=== PATIENT | female | born 1995 | race American Indian/Alaskan Native ===

== ENCOUNTER 2016-07-20 16:36 | Emergency (ER) | payer MEDICAID, OTHER ==
--- NOTE | 2016-07-20 17:36 | Emergency Department Report ---
Chief Complaint: Abdominal Pain Stated Complaint: ABD PAIN Time Seen by Provider: 07/20/16 17:31 - HPI History of Present Illness: Patient here reports abdominal pain to right lower quadrant for 2 weeks. She reports nausea and that she vomited 1-2 times. Denies any diarrhea. Reports the pain is 8 out of 10 to her lower abdomen and it's cramping. Denies any fever or chills. Denies any urinary burning frequency or urgency. Last menstrual period is 06/22/2016 and she is concerned about being . She denies any vaginal bleeding or discharge. - ROS Review of Systems: all Systems are negative unless stated in HPI above - Exam Vital Signs: Vital Signs 07/20/16 16:48 Temperature 98.7 F Pulse Rate 62 Respiratory 18 Rate Blood Pressure 128/77 O2 Sat by Pulse 100 Oximetry Physical Exam: General: This is a 20-year-old female well-nourished well-developed in no acute distress. Abdomen: Mild tenderness to palpate to mid pelvic area. No guarding or rebound tenderness. Normal bowel sounds. No CVA tenderness. CV: S1, S2. Regular rate and rhythm. MSE screening note: Focused history and physical exam performed. Due to findings the following was ordered: See MDM ED Medical Decision Making - Medical Decision Making Medical decision making: Patient seen by provider in triage area. Appropriate protocol activated and patient to main ED to be seen by physician. ED Disposition for MSE Condition: Stable Instructions: Abdominal Pain (ED)
[2016-07-20 18:07] LABS: Basophils % (Auto) 0.4 % (0.0-1.8); Eosinophils % (Auto) 0.5 % (0.0-4.3); Hematocrit 40.5 % (30.3-42.9); Hemoglobin 13.6 gm/dl (10.1-14.3); Mean Corpuscular HGB Conc 34 % (30-34); Mean Corpuscular Hemoglobin 31 pg (28-32); Mean Corpuscular Volume 91 fl (79-97); Platelet Count 232 K/mm3 (140-440); Red Blood Count 4.43 M/mm3 (3.65-5.03); Red Cell Distribution Width 12.8 % (13.2-15.2); White Blood Count 8.2 K/mm3 (4.5-11.0)
[2016-07-20 18:28] LABS: Alanine Aminotransferase 14 units/L (7-56); Albumin 4.2 g/dL (3.9-5); Albumin/Globulin Ratio 1.3 %; Alkaline Phosphatase 60 units/L (35-129); Amylase 68 units/L (27-131); Anion Gap 18 mmol/L; BUN/Creatinine Ratio 8.33; Bilirubin,Total 0.5 mg/dL (0.1-1.2); Blood Urea Nitrogen 5 mg/dL (7-17); Calcium 8.8 mg/dL (8.4-10.2); Carbon Dioxide 24 mmol/L (22-30); Chloride 99.5 mmol/L (98-107); Glucose 96 mg/dL (65-100); Lipase 14 units/L (13-60); Potassium 3.9 mmol/L (3.6-5.0); Sodium 138 mmol/L (137-145); Total Protein 7.4 g/dL (6.3-8.2)
[2016-07-20 18:37] LABS: Bilirubin,Direct < 0.2 mg/dL (0-0.2); Bilirubin,Indirect 0.3 mg/dL
[2016-07-20 19:24] LABS: Bilirubin,Urine NEG (Negative); Blood,Urine SM (Negative); Ketones,Urine NEG (Negative); Leukocyte Esterase,Urine MOD (Negative); Nitrite,Urine NEG (Negative); Protein,Urine <15 mg/dL mg/dL (Negative); RBC,Urine < 1.0 /HPF (0.0-6.0); Urobilinogen,Urine < 2.0 mg/dL (<2.0)
--- NOTE | 2016-07-20 22:26 | Ultrasound Report ---
FINAL REPORT PROCEDURE: US OB TRANSVAGINAL TECHNIQUE: Real-time transabdominal and transvaginal sonography of the uterus, placenta, amniotic fluid, adnexa, and fetus was performed with image documentation. Measurements were obtained to determine age/size. M-mode Doppler was used to document heartbeat. CPT 01596 and 73156 HISTORY: abdominal pain and COMPARISON: No prior studies are available for comparison. FINDINGS: Uterus measures 9.1 cm in length. Endometrial thickness is 1 cm. No gestational sac is seen in the endometrial canal. There is moderate free pelvic fluid. Right ovary measures 3.2 x 1.5 x 2.7 cm. Left ovary measures 3.3 x 2.3 x 2.9 cm. Normal Doppler flow seen in the ovaries. Likely collapsed cyst is seen in the left ovary measuring 2 cm. IMPRESSION: No IUP is seen. Likely recently collapsed cyst is seen in the left ovary with moderate free pelvic fluid. Correlation with serial quantitative beta HCG levels is recommended. Repeat ultrasound may be useful if these continue to rise.
--- NOTE | 2016-07-20 22:27 | Ultrasound Report ---
FINAL REPORT PROCEDURE: US OB < = 14 WEEKS FETUS TECHNIQUE: Real-time transabdominal and transvaginal sonography of the uterus, placenta, amniotic fluid, adnexa, and fetus was performed with image documentation. Measurements were obtained to determine age/size. M-mode Doppler was used to document heartbeat. CPT 03971 and 21046 HISTORY: abdominal pain and COMPARISON: No prior studies are available for comparison. FINDINGS: Uterus measures 9.1 cm in length. Endometrial thickness is 1 cm. No gestational sac is seen in the endometrial canal. There is moderate free pelvic fluid. Right ovary measures 3.2 x 1.5 x 2.7 cm. Left ovary measures 3.3 x 2.3 x 2.9 cm. Normal Doppler flow seen in the ovaries. Likely collapsed cyst is seen in the left ovary measuring 2 cm. IMPRESSION: No IUP is seen. Likely recently collapsed cyst is seen in the left ovary with moderate free pelvic fluid. Correlation with serial quantitative beta HCG levels is recommended. Repeat ultrasound may be useful if these continue to rise.
--- NOTE | 2016-07-21 02:14 | Emergency Department Report ---
ED Female HPI - General Chief complaint: Abdominal Pain Stated complaint: ABD PAIN Time Seen by Provider: 07/20/16 17:31 Source: patient, RN notes reviewed Mode of arrival: Ambulatory Limitations: No Limitations - History of Present Illness Initial comments: This is a 20-year-old female, previously unknown to me. Last menstrual period is June 22. She is 2, para 1. No history of abdominal surgeries. Her [employer] doctor has been Dr. Paniagua through [facility]. patient presents to the ER with lower abdominal pain for 2 weeks. The pain is cramping in nature. It does not radiate anywhere. Has no exacerbating or relieving factors. Denies irritative and instructed urinary symptoms. Denies vomiting. Denies chest pain or shortness of breath. No vaginal bleeding. No vaginal discharge. MD Complaint: pelvic pain -: Gradual Severity: mild Quality: cramping Consistency: intermittent Improves with: none Worsens with: none Are you Now?: Yes Associated Symptoms: abdominal pain - Related Data Sexually active: Yes Previous Rx's Medication Instructions Recorded Last Taken Type Doxylamine/Pyridoxine HCl 1 each PO QHS PRN #30 tablet. 07/21/16 Unknown Rx [Jayshree Azul 10-10 mg Tablet] Vit W-Ca,Fe,FA(<1 mg) 1 each PO QDAY #30 tablet 07/21/16 Unknown Rx [ Vitamins] Allergies Allergy/AdvReac Type Severity Reaction Status Date / Time No Known Allergies Allergy Verified 07/20/16 16:46 ED Review of Systems ROS: Stated complaint: ABD PAIN Other details as noted in HPI Constitutional: denies: weakness Eyes: denies: vision change ENT: denies: congestion Respiratory: denies: cough Cardiovascular: denies: palpitations Gastrointestinal: abdominal pain Genitourinary: denies: dysuria Musculoskeletal: denies: back pain Skin: denies: lesions Neurological: denies: weakness ED Past Medical Hx - Past Medical History Previous Medical History?: No - Surgical History Past Surgical History?: No - Social History Smoking Status: Never Smoker Substance Use Type: None - Medications Home Medications: Home Medications Medication Instructions Recorded Confirmed Last Taken Type Doxylamine/Pyridoxine HCl 1 each PO QHS PRN #30 tablet. 07/21/16 Unknown Rx [Jayshree Azul 10-10 mg Tablet] Vit W-Ca,Fe,FA(<1 mg) 1 each PO QDAY #30 tablet 07/21/16 Unknown Rx [ Vitamins] ED Physical Exam - General Limitations: No Limitations General appearance: alert, in no apparent distress - Head Head exam: Present: atraumatic, normocephalic - Eye Eye exam: Present: normal appearance - ENT ENT exam: Present: normal exam, normal orophraynx, mucous membranes moist, normal external ear exam - Neck Neck exam: Present: normal inspection, full ROM. Absent: tenderness, meningismus - Respiratory Respiratory exam: Present: normal lung sounds bilaterally. Absent: respiratory distress, wheezes, rales, rhonchi, stridor, chest wall tenderness, accessory muscle use, decreased breath sounds, prolonged expiratory - Cardiovascular Cardiovascular Exam: Present: regular rate, normal rhythm, normal heart sounds. Absent: bradycardia, tachycardia, irregular rhythm, systolic murmur, diastolic murmur, rubs, gallop - GI/Abdominal GI/Abdominal exam: Present: soft, normal bowel sounds. Absent: distended, tenderness, guarding, rebound, rigid, pulsatile mass - External exam: Present: normal external exam Speculum exam: Present: normal speculum exam. Absent: vaginal bleeding Bi-manual exam: Present: normal bi-manual exam, other (escorted by nurse Karen Sears during gynecologic exam). Absent: cervical motion tendernes, adnexal tenderness, adnexal mass, uterine enlargement, uterine tenderness - Extremities Exam Extremities exam: Present: normal inspection, full ROM, normal capillary refill. Absent: tenderness, pedal edema, joint swelling, calf tenderness - Back Exam Back exam: Present: normal inspection, full ROM. Absent: tenderness, CVA tenderness (R), CVA tenderness (L), muscle spasm, paraspinal tenderness, vertebral tenderness - Neurological Exam Neurological exam: Present: alert, oriented X3, normal gait, other (Extraocular movements intact. Tongue midline. No facial droop. Facial sensation intact to light touch in the V1, V2, V3 distribution bilaterally. 5 and 5 strength in 4 extremities.. Sensation is intact to light touch in 4 extremities.). Absent : motor sensory deficit - Psychiatric Psychiatric exam: Present: normal affect, normal mood - Skin Skin exam: Present: warm, dry, intact, normal color. Absent: rash ED Course Vital Signs 07/20/16 07/21/16 07/21/16 16:48 00:42 01:47 Temperature 98.7 F 98.3 F Pulse Rate 62 64 76 Respiratory 18 14 16 Rate Blood Pressure 128/77 Blood Pressure 129/74 108/70 [Left] O2 Sat by Pulse 100 100 100 Oximetry 07/21/16 03:15 Temperature Pulse Rate 76 Respiratory 16 Rate Blood Pressure Blood Pressure 110/72 [Left] O2 Sat by Pulse 99 Oximetry - Reevaluation(s) Reevaluation #1: 07/21/16 02:49 Differential diagnosis: , ectopic , miscarriage, urinary tract infection Assessment and plan: 20-year-old female with abdominal pain for 2 weeks. She is afebrile with reassuring vital signs. There is no abdominal tenderness, rebound or guarding. She has a benign gynecologic examination. Quantitative hCGs in the 200s, pelvic ultrasound demonstrates no obvious intrauterine . I think acute ruptured ectopic is very unlikely given that she has 2 weeks of symptoms, is hemodynamically stable and has a benign physical exam. Similarly, I think appendicitis is very unlikely for the aforementioned reasons. When I walk into the room, the patient is afebrile, in no distress, speaking and playing on a cellular phone. She is counseled to return in 48 hours for repeat quantitative hCG, to follow up with outpatient [employer] within the next week, and to avoid sexual activity. She is afebrile, with reassuring vital signs, appears to be reliable, and understands ectopic/bleeding precautions. ED Medical Decision Making - Lab Data Result diagrams: 07/20/16 17:47 07/20/16 17:47 Vital Signs 07/20/16 07/21/16 07/21/16 16:48 00:42 01:47 Temperature 98.7 F 98.3 F Pulse Rate 62 64 76 Respiratory 18 14 16 Rate Blood Pressure 128/77 Blood Pressure 129/74 108/70 [Left] O2 Sat by Pulse 100 100 100 Oximetry Lab Results 07/20/16 07/20/16 07/20/16 Range/Units 17:47 17:47 17:47 WBC 8.2 (4.5-11.0) K/mm3 RBC 4.43 (3.65-5.03) M/mm3 Hgb 13.6 (10.1-14.3) gm/dl Hct 40.5 (30.3-42.9) % MCV 91 (79-97) fl MCH 31 (28-32) pg MCHC 34 (30-34) % RDW 12.8 L (13.2-15.2) % Plt Count 232 (140-440) K/mm3 Lymph % (Auto) 27.4 (13.4-35.0) % [place] % (Auto) 5.9 (0.0-7.3) % Eos % (Auto) 0.5 (0.0-4.3) % Baso % (Auto) 0.4 (0.0-1.8) % Lymph # 2.2 (1.2-5.4) K/mm3 [place] # 0.5 (0.0-0.8) K/mm3 Eos # 0.0 (0.0-0.4) K/mm3 Baso # 0.0 (0.0-0.1) K/mm3 Seg Neutrophils % 65.8 (40.0-70.0) % Seg Neutrophils # 5.4 (1.8-7.7) K/mm3 Sodium 138 (137-145) mmol/L Potassium 3.9 (3.6-5.0) mmol/L Chloride 99.5 (98-107) mmol/L Carbon Dioxide 24 (22-30) mmol/L Anion Gap 18 mmol/L BUN 5 L (7-17) mg/dL Creatinine 0.6 L (0.7-1.2) mg/dL Estimated GFR > 60 ml/min BUN/Creatinine Ratio 8.33 % Glucose 96 (65-100) mg/dL Calcium 8.8 (8.4-10.2) mg/dL Total Bilirubin 0.5 (0.1-1.2) mg/dL Direct Bilirubin < 0.2 (0-0.2) mg/dL Indirect Bilirubin 0.3 mg/dL AST 16 (5-40) units/L ALT 14 (7-56) units/L Alkaline Phosphatase 60 (35-129) units/L Total Protein 7.4 (6.3-8.2) g/dL Albumin 4.2 (3.9-5) g/dL Albumin/Globulin Ratio 1.3 % Amylase 68 (27-131) units/L Lipase 14 (13-60) units/L HCG, Qual Positive (Negative) HCG, Quant (0-4) mIU/mL Urine Color (Yellow) Urine Turbidity (Clear) Urine pH (5.0-7.0) Ur Specific Lingle (1.003-1.030) Urine Protein (Negative) mg/dL Urine Glucose (UA) (Negative) mg/dL Urine Ketones (Negative) mg/dL Urine Blood (Negative) Urine Nitrite (Negative) Urine Bilirubin (Negative) Urine Urobilinogen (<2.0) mg/dL Ur Leukocyte Esterase (Negative) Urine WBC (Auto) (0.0-6.0) /HPF Urine RBC (Auto) (0.0-6.0) /HPF U Epithel Cells (Auto) (0-13.0) /HPF Blood Type Ord Rhogam Gestat Weeks WEEKS 07/20/16 07/20/16 07/20/16 Range/Units 18:30 20:53 20:53 WBC (4.5-11.0) K/mm3 RBC (3.65-5.03) M/mm3 Hgb (10.1-14.3) gm/dl Hct (30.3-42.9) % MCV (79-97) fl MCH (28-32) pg MCHC (30-34) % RDW (13.2-15.2) % Plt Count (140-440) K/mm3 Lymph % (Auto) (13.4-35.0) % [place] % (Auto) (0.0-7.3) % Eos % (Auto) (0.0-4.3) % Baso % (Auto) (0.0-1.8) % Lymph # (1.2-5.4) K/mm3 [place] # (0.0-0.8) K/mm3 Eos # (0.0-0.4) K/mm3 Baso # (0.0-0.1) K/mm3 Seg Neutrophils % (40.0-70.0) % Seg Neutrophils # (1.8-7.7) K/mm3 Sodium (137-145) mmol/L Potassium (3.6-5.0) mmol/L Chloride (98-107) mmol/L Carbon Dioxide (22-30) mmol/L Anion Gap mmol/L BUN (7-17) mg/dL Creatinine (0.7-1.2) mg/dL Estimated GFR ml/min BUN/Creatinine Ratio % Glucose (65-100) mg/dL Calcium (8.4-10.2) mg/dL Total Bilirubin (0.1-1.2) mg/dL Direct Bilirubin (0-0.2) mg/dL Indirect Bilirubin mg/dL AST (5-40) units/L ALT (7-56) units/L Alkaline Phosphatase (35-129) units/L Total Protein (6.3-8.2) g/dL Albumin (3.9-5) g/dL Albumin/Globulin Ratio % Amylase (27-131) units/L Lipase (13-60) units/L HCG, Qual (Negative) HCG, Quant 227.6 H (0-4) mIU/mL Urine Color Straw (Yellow) Urine Turbidity Clear (Clear) Urine pH 6.0 (5.0-7.0) Ur Specific Lingle 1.006 (1.003-1.030) Urine Protein <15 mg/dl (Negative) mg/dL Urine Glucose (UA) Neg (Negative) mg/dL Urine Ketones Neg (Negative) mg/dL Urine Blood Sm (Negative) Urine Nitrite Neg (Negative) Urine Bilirubin Neg (Negative) Urine Urobilinogen < 2.0 (<2.0) mg/dL Ur Leukocyte Esterase Mod (Negative) Urine WBC (Auto) 14.0 H (0.0-6.0) /HPF Urine RBC (Auto) < 1.0 (0.0-6.0) /HPF U Epithel Cells (Auto) 2.0 (0-13.0) /HPF Blood Type O POSITIVE Ord Rhogam Gestat Weeks Rh pos WEEKS - Radiology Data Radiology results: report reviewed, image reviewed Transvaginal ultrasound demonstrates collapsed cyst in the left ovary with moderate free pelvic fluid. No gestational sac is noted. Normal Doppler flow is noted to the bilateral ovaries. Critical care attestation.: If time is entered above; I have spent that time in minutes in the direct care of this critically ill patient, excluding procedure time. ED Disposition Clinical Impression: Disposition: DISCHARGED TO HOME OR SELFCARE Is pt being admited?: No Does the pt Need Aspirin: No Condition: Stable Instructions: Ectopic (ED) Additional Instructions: Take her vitamins as directed, take nausea medication as directed/ needed. Follow up with an [employer] doctor within the next week to initiate care. Rest and avoid heavy lifting, and do not engage in sexual activity until cleared by an [employer] doctor. Return in 48 hours for repeat quantitative hCG / test. It is very important to follow-up in 2 days to determine if the pregnancies in the correct place, the uterus, or is not in the correct place, ectopic. Ectopic can be dangerous and life threatening. Therefore, it is very important to return as directed. Return to the ER right away with severe pain, loss of consciousness, dizziness or lightheadedness, bleeding more than 2 pads soaked through and through per hour. "My [employer]", Dr. Narvaez are local psych specialist. Prescriptions: Doxylamine/Pyridoxine HCl [Jayshree Azul 10-10 mg Tablet] 1 each PO QHS PRN #30 tablet.dr PAZ Reason: Nausea Vit W-Ca,Fe,FA(<1 mg) [ Vitamins] 1 each PO QDAY #30 tablet Referrals: PRIMARY CAREMD [Primary Care Provider] - 3-5 Days TELMA NARVAEZ MD [Staff Physician] - 3-5 Days [facility] [Provider Group] - 3-5 Days Forms: Work/School Release Form(ED)
[2016-07-21 03:15] VITALS: BP 110/72
== END 2016-07-21 03:15 | disposition home or self-care (01) ==
LOC: ED 16:36
DX: O26.891 Other specified pregnancy related conditions, first trimester (principal); R10.30 Lower abdominal pain, unspecified
CPT/HCPCS: 36415; 76801; 76817; 80048; 80074; 81001; 82150; 83690; 84702; 84703; 85025; 86900; 86901; 87591

== ENCOUNTER 2016-09-25 08:28 | Emergency (ER) | payer MEDICAID ==
[2016-09-25 08:49] VITALS: BP 100/72
[2016-09-25 09:38] LABS: Basophils % (Auto) 0.5 % (0.0-1.8); Eosinophils % (Auto) 1.1 % (0.0-4.3); Hematocrit 37.2 % (30.3-42.9); Hemoglobin 12.5 gm/dl (10.1-14.3); Mean Corpuscular HGB Conc 34 % (30-34); Mean Corpuscular Hemoglobin 30 pg (28-32); Mean Corpuscular Volume 90 fl (79-97); Platelet Count 232 K/mm3 (140-440); Red Blood Count 4.14 M/mm3 (3.65-5.03); Red Cell Distribution Width 13.3 % (13.2-15.2); White Blood Count 6.7 K/mm3 (4.5-11.0)
[2016-09-25 09:53] LABS: Anion Gap 16 mmol/L; Blood Urea Nitrogen 7 mg/dL (7-17); Calcium 8.8 mg/dL (8.4-10.2); Carbon Dioxide 23 mmol/L (22-30); Chloride 100.7 mmol/L (98-107); Glucose 79 mg/dL (65-100); Potassium 4.2 mmol/L (3.6-5.0); Sodium 135 mmol/L (137-145)
[2016-09-25 15:52] LABS: Urine Drugs of Abuse Note Disclamer
--- NOTE | 2016-09-25 16:02 | Emergency Department Report ---
Chief Complaint: Syncope Stated Complaint: SYNCOPE Time Seen by Provider: 09/25/16 15:37 - HPI History of Present Illness: 21-year-old female past medical history none currently approximately 3-1/2 months presents status post syncopal episode while at work this morning. Patient brought in by EMS. Patient states she was at work felt slightly lightheaded suddenly lost consciousness woke up on the ground where her coworkers around her. Patient states she has headache denies any vaginal bleeding but is experiencing slight crampy pain in lower abdomen denies any nausea or vomiting denies any fever or chills. Patient is awake alert and oriented 3 - ROS Review of Systems: Currently about 3-1/2 months - Exam Vital Signs: Vital Signs 09/25/16 08:40 Temperature 97.4 F L Pulse Rate 67 Respiratory 20 Rate Blood Pressure 100/72 O2 Sat by Pulse 100 Oximetry Physical Exam: Gravid abdomen, patient awake alert and oriented 3, heart and lungs clear on auscultation, positive slight suprapubic tenderness MSE screening note: Focused history and physical exam performed. Due to findings the following was ordered: Screening Assessment/Plan/Differential Dx: Syncope in patient 1- This initial assessment/diagnostic orders/clinical plan/ treatment(s) is/are subject to change based on pt's health status, clinical progression and re- assessment by fellow clinical providers in the ED. Further treatment and workup at subsequent clinical provers discretion. Patient/guardians urged not to elope from ED as their condition may be serious if not clinically assessed and managed. 2- labs, type and screen hCG quantitative ultrasound pelvic for , urinalysis, urine culture for initial workup, EKG 3-patient to be evaluated by ED attending ED Medical Decision Making - Lab Data Result diagrams: 09/25/16 09:16 09/25/16 09:16 ED Disposition for MSE Condition: Stable Referrals: PRIMARY CARE, [Primary Care Provider] - 3-5 Days
[2016-09-25 16:13] LABS: Bacteria,Urine 1+ /HPF (Negative); Bilirubin,Urine NEG (Negative); Blood,Urine NEG (Negative); Ketones,Urine NEG (Negative); Leukocyte Esterase,Urine LG (Negative); Mucus,Urine 2+ /HPF; Nitrite,Urine NEG (Negative); Protein,Urine <15 mg/dL mg/dL (Negative); Urobilinogen,Urine < 2.0 mg/dL (<2.0)
[2016-09-25] MEDS ORDERED: NACL 0.9% 1000 ML 1,000 ML IV ONE (16:26)
[2016-09-25 16:47] LABS: Alanine Aminotransferase 14 units/L (7-56); Albumin 3.8 g/dL (3.9-5); Albumin/Globulin Ratio 1.1 %; Alkaline Phosphatase 52 units/L (35-129); Bilirubin,Total 0.3 mg/dL (0.1-1.2); Creatine Kinase 63 units/L (30-135); Total Protein 7.2 g/dL (6.3-8.2)
[2016-09-25 16:48] LABS: Bilirubin,Direct < 0.2 mg/dL (0-0.2); Bilirubin,Indirect 0.1 mg/dL
--- NOTE | 2016-09-25 17:22 | Ultrasound Report ---
FINAL REPORT PROCEDURE: US OB \T\lt; = 14 WEEKS FETUS TECHNIQUE: Real-time transabdominal and transvaginal sonography of the uterus, placenta, amniotic fluid, adnexa, and fetus was performed with image documentation. Measurements were obtained to determine age/size. M-mode Doppler was used to document heartbeat. CPT 13837 and 27462 HISTORY: syncope today COMPARISON: Ultrasound dated July 20, 2016 FINDINGS: ADDITIONAL GESTATION: None. Single live intrauterine is seen with heart rate of 145 beats per minute. Placenta is anterior in location without evidence of previa. Cervix is closed. There may be a tiny subchorionic hemorrhage. BPD corresponds to 14 weeks 2 days gestational age HC corresponds to 14 weeks 2 days gestational age AC corresponds of 13 weeks 2 days gestational age FL corresponds of 13 weeks 3 days gestational age Estimated gestational age is 13 weeks 6 days with estimated date of delivery of March 27, 2017 based on these measurements. Right ovary measures 2.8 x 1.7 x 2.7 cm. Left ovary measures 3.9 x 2.3 x 3.4 cm. Normal Doppler flow seen in the ovaries. No free pelvic fluid is seen. IMPRESSION: 1. Single live intrauterine gestation at approximately 13 weeks 6 days. 2. EDC by US March 27, 2017. 3. There may be small subchorionic hemorrhage.
--- NOTE | 2016-09-25 17:23 | Ultrasound Report ---
FINAL REPORT PROCEDURE: US OB TRANSVAGINAL TECHNIQUE: Real-time transabdominal and transvaginal sonography of the uterus, placenta, amniotic fluid, adnexa, and fetus was performed with image documentation. Measurements were obtained to determine age/size. M-mode Doppler was used to document heartbeat. CPT 27280 and 20689 HISTORY: syncope today COMPARISON: Ultrasound dated July 20, 2016 FINDINGS: ADDITIONAL GESTATION: None. Single live intrauterine is seen with heart rate of 145 beats per minute. Placenta is anterior in location without evidence of previa. Cervix is closed. There may be a tiny subchorionic hemorrhage. BPD corresponds to 14 weeks 2 days gestational age HC corresponds to 14 weeks 2 days gestational age AC corresponds of 13 weeks 2 days gestational age FL corresponds of 13 weeks 3 days gestational age Estimated gestational age is 13 weeks 6 days with estimated date of delivery of March 27, 2017 based on these measurements. Right ovary measures 2.8 x 1.7 x 2.7 cm. Left ovary measures 3.9 x 2.3 x 3.4 cm. Normal Doppler flow seen in the ovaries. No free pelvic fluid is seen. IMPRESSION: 1. Single live intrauterine gestation at approximately 13 weeks 6 days. 2. EDC by US March 27, 2017. 3. There may be small subchorionic hemorrhage.
[2016-09-25] MEDS ORDERED: TYLENOL PO ONE (17:25)
--- NOTE | 2016-09-25 17:26 | Emergency Department Report ---
ED Syncope HPI - General Chief Complaint: Syncope Stated Complaint: SYNCOPE Time Seen by Provider: 09/25/16 15:37 Source: patient Exam Limitations: no limitations - History of Present Illness Initial Comments: 21-year-old female with no significant past medical history presents to the hospital playing a syncopal episode. Patient's currently 14 weeks . She has had care clinic ultrasound during this . Her SPIRITUAL CARE COORDINATOR doctor is associated with [facility]. Patient was standing at work. She suddenly felt nauseated and dizzy. She attempted to walk to the bathroom and then passed out prior to getting there. She only had oatmeal today and did not have much to drink. She's been experiencing intermittent nausea with mild vomiting throughout her . Patient states she has this mild global headache that started after syncopal episode which she thinks is due to be hungry. No reports of abdominal pain, vaginal discharge, dysuria, chest pain, shortness of breath, fever, or neck pain. Patient reports this is her second and she has 1 child at home. No history of miscarriages, ectopic, lower portion. SPIRITUAL CARE COORDINATOR: Dr. Malik Paniagua at [facility]: No fevers chills or weight loss - Related Data Allergies/Adverse Reactions: Allergies No Known Allergies Allergy (Verified 07/20/16 16:46) Home Medications: Ambulatory Orders Doxylamine/Pyridoxine HCl [Jayshree Azul 10-10 mg Tablet] 1 each PO QHS PRN #30 tablet. 07/21/16 Vit W-Ca,Fe,FA(<1 mg) [ Vitamins] 1 each PO QDAY #30 tablet ED Review of Systems ROS: Stated complaint: SYNCOPE Other details as noted in HPI Comment: All other systems reviewed and negative Other: Constitutional: No fevers chills Eyes: No eye pain visual changes ENT: No ear pain or throat pain Neck: Denies pain Respiratory: Denies cough wheezing shortness of breath Cardiovascular: Denies chest pain, palpitations GI: Denies abdominal pain, diarrhea : Denies dysuria, urinary frequency, or urgency Musculoskeletal: Denies back pain, joint swelling Skin: Denies rash, lesions, erythema Neurologic: Denies h numbness, weakness Psychiatric: Denies suicidal ideation, hallucinations ED Past Medical Hx - Past Medical History Previous Medical History?: No - Surgical History Past Surgical History?: No - Social History Smoking Status: Never Smoker Substance Use Type: None - Medications Home Medications: Home Medications Medication Instructions Recorded Confirmed Last Taken Type Doxylamine/Pyridoxine HCl 1 each PO QHS PRN #30 tablet. 07/21/16 Unknown Rx [Jayshree Azul 10-10 mg Tablet] Vit W-Ca,Fe,FA(<1 mg) 1 each PO QDAY #30 tablet 07/21/16 Unknown Rx [ Vitamins] ED Physical Exam - General Limitations: No Limitations - Other Other exam information: General: No limitations, patient is alert in no acute distress Head exam: No scalp tenderness Eyes exam: Normal appearance, pupils equal reactive to light, extraocular movements intact ENT: Moist mucous membrane, normal oropharynx Neck exam: Normal inspection, full range of motion, no meningismus nontender Respiratory exam: Clear to auscultation bilateral, no wheezes, rales, crackles Cardiovascular: Normal rate and rhythm, normal heart sounds Abdomen: Soft, nondistended, and nontender, with normal bowel sounds, no rebound, or guarding Extremity: Full range of motion normal inspection no deformity Back: Normal Inspection, full range of motion, no tenderness Neurologic: Alert, oriented x3, cranial nerves intact, no motor or sensory deficit Psychiatric: normal affect, normal mood Skin: Warm, dry, intact ED Course Vital Signs 09/25/16 09/25/16 08:40 17:31 Temperature 97.4 F L Pulse Rate 67 Respiratory 20 18 Rate Blood Pressure 100/72 O2 Sat by Pulse 100 Oximetry ED Medical Decision Making - Lab Data Result diagrams: 09/25/16 09:16 09/25/16 09:16 Lab Results 09/25/16 09/25/16 09/25/16 Range/Units 08:50 09:16 09:16 WBC 6.7 (4.5-11.0) K/mm3 RBC 4.14 (3.65-5.03) M/mm3 Hgb 12.5 (10.1-14.3) gm/dl Hct 37.2 (30.3-42.9) % MCV 90 (79-97) fl MCH 30 (28-32) pg MCHC 34 (30-34) % RDW 13.3 (13.2-15.2) % Plt Count 232 (140-440) K/mm3 Lymph % (Auto) 17.8 (13.4-35.0) % [place] % (Auto) 6.5 (0.0-7.3) % Eos % (Auto) 1.1 (0.0-4.3) % Baso % (Auto) 0.5 (0.0-1.8) % Lymph # 1.2 (1.2-5.4) K/mm3 [place] # 0.4 (0.0-0.8) K/mm3 Eos # 0.1 (0.0-0.4) K/mm3 Baso # 0.0 (0.0-0.1) K/mm3 Seg Neutrophils % 74.1 H (40.0-70.0) % Seg Neutrophils # 5.0 (1.8-7.7) K/mm3 Sodium 135 L (137-145) mmol/L Potassium 4.2 (3.6-5.0) mmol/L Chloride 100.7 (98-107) mmol/L Carbon Dioxide 23 (22-30) mmol/L Anion Gap 16 mmol/L BUN 7 (7-17) mg/dL Creatinine 0.5 L (0.7-1.2) mg/dL Estimated GFR > 60 ml/min BUN/Creatinine Ratio 14.00 % Glucose 79 (65-100) mg/dL POC Glucose 76 (70-105) Lactic Acid (0.7-2.0) mmol/L Calcium 8.8 (8.4-10.2) mg/dL Total Bilirubin (0.1-1.2) mg/dL Direct Bilirubin (0-0.2) mg/dL Indirect Bilirubin mg/dL AST (5-40) units/L ALT (7-56) units/L Alkaline Phosphatase (35-129) units/L Total Creatine Kinase (30-135) units/L Troponin T (0.00-0.029) ng/mL Total Protein (6.3-8.2) g/dL Albumin (3.9-5) g/dL Albumin/Globulin Ratio % HCG, Quant (0-4) mIU/mL Urine Color (Yellow) Urine Turbidity (Clear) Urine pH (5.0-7.0) Ur Specific [place] (1.003-1.030) Urine Protein (Negative) mg/dL Urine Glucose (UA) (Negative) mg/dL Urine Ketones (Negative) mg/dL Urine Blood (Negative) Urine Nitrite (Negative) Ur Reducing Substances Urine Bilirubin (Negative) Urine Ictotest Urine Urobilinogen (<2.0) mg/dL Ur Leukocyte Esterase (Negative) Urine WBC (Auto) (0.0-6.0) /HPF Urine RBC (Auto) (0.0-6.0) /HPF U Epithel Cells (Auto) (0-13.0) /HPF Urine Bacteria (Auto) (Negative) /HPF Urine Mucus /HPF Urine HCG, Qual (Negative) Urine Opiates Screen Urine Methadone Screen Ur Barbiturates Screen Ur Phencyclidine Scrn Ur Amphetamines Screen U Benzodiazepines Scrn Urine Cocaine Screen U Marijuana (THC) Screen Drugs of Abuse Note Ketones (-0.28) mmol/L Blood Type 09/25/16 09/25/16 09/25/16 Range/Units 15:00 15:00 15:46 WBC (4.5-11.0) K/mm3 RBC (3.65-5.03) M/mm3 Hgb (10.1-14.3) gm/dl Hct (30.3-42.9) % MCV (79-97) fl MCH (28-32) pg MCHC (30-34) % RDW (13.2-15.2) % Plt Count (140-440) K/mm3 Lymph % (Auto) (13.4-35.0) % [place] % (Auto) (0.0-7.3) % Eos % (Auto) (0.0-4.3) % Baso % (Auto) (0.0-1.8) % Lymph # (1.2-5.4) K/mm3 [place] # (0.0-0.8) K/mm3 Eos # (0.0-0.4) K/mm3 Baso # (0.0-0.1) K/mm3 Seg Neutrophils % (40.0-70.0) % Seg Neutrophils # (1.8-7.7) K/mm3 Sodium (137-145) mmol/L Potassium (3.6-5.0) mmol/L Chloride (98-107) mmol/L Carbon Dioxide (22-30) mmol/L Anion Gap mmol/L BUN (7-17) mg/dL Creatinine (0.7-1.2) mg/dL Estimated GFR ml/min BUN/Creatinine Ratio % Glucose (65-100) mg/dL POC Glucose (70-105) Lactic Acid (0.7-2.0) mmol/L Calcium (8.4-10.2) mg/dL Total Bilirubin (0.1-1.2) mg/dL Direct Bilirubin (0-0.2) mg/dL Indirect Bilirubin mg/dL AST (5-40) units/L ALT (7-56) units/L Alkaline Phosphatase (35-129) units/L Total Creatine Kinase (30-135) units/L Troponin T (0.00-0.029) ng/mL Total Protein (6.3-8.2) g/dL Albumin (3.9-5) g/dL Albumin/Globulin Ratio % HCG, Quant (0-4) mIU/mL Urine Color Yellow (Yellow) Urine Turbidity Clear (Clear) Urine pH 6.0 (5.0-7.0) Ur Specific [place] 1.019 (1.003-1.030) Urine Protein <15 mg/dl (Negative) mg/dL Urine Glucose (UA) Neg (Negative) mg/dL Urine Ketones Neg (Negative) mg/dL Urine Blood Neg (Negative) Urine Nitrite Neg (Negative) Ur Reducing Substances Not Reportable Urine Bilirubin Neg (Negative) Urine Ictotest Not Reportable Urine Urobilinogen < 2.0 (<2.0) mg/dL Ur Leukocyte Esterase Lg (Negative) Urine WBC (Auto) 7.0 H (0.0-6.0) /HPF Urine RBC (Auto) 4.0 (0.0-6.0) /HPF U Epithel Cells (Auto) 12.0 (0-13.0) /HPF Urine Bacteria (Auto) 1+ (Negative) /HPF Urine Mucus 2+ /HPF Urine HCG, Qual Positive A (Negative) Urine Opiates Screen Presumptive negative Urine Methadone Screen Presumptive negative Ur Barbiturates Screen Presumptive negative Ur Phencyclidine Scrn Presumptive negative Ur Amphetamines Screen Presumptive negative U Benzodiazepines Scrn Presumptive negative Urine Cocaine Screen Presumptive negative U Marijuana (THC) Screen Presumptive negative Drugs of Abuse Note Disclamer Ketones (-0.28) mmol/L Blood Type O POSITIVE 09/25/16 09/25/16 09/25/16 Range/Units 15:46 15:46 15:46 WBC (4.5-11.0) K/mm3 RBC (3.65-5.03) M/mm3 Hgb (10.1-14.3) gm/dl Hct (30.3-42.9) % MCV (79-97) fl MCH (28-32) pg MCHC (30-34) % RDW (13.2-15.2) % Plt Count (140-440) K/mm3 Lymph % (Auto) (13.4-35.0) % [place] % (Auto) (0.0-7.3) % Eos % (Auto) (0.0-4.3) % Baso % (Auto) (0.0-1.8) % Lymph # (1.2-5.4) K/mm3 [place] # (0.0-0.8) K/mm3 Eos # (0.0-0.4) K/mm3 Baso # (0.0-0.1) K/mm3 Seg Neutrophils % (40.0-70.0) % Seg Neutrophils # (1.8-7.7) K/mm3 Sodium (137-145) mmol/L Potassium (3.6-5.0) mmol/L Chloride (98-107) mmol/L Carbon Dioxide (22-30) mmol/L Anion Gap mmol/L BUN (7-17) mg/dL Creatinine (0.7-1.2) mg/dL Estimated GFR ml/min BUN/Creatinine Ratio % Glucose (65-100) mg/dL POC Glucose (70-105) Lactic Acid 0.6 L (0.7-2.0) mmol/L Calcium (8.4-10.2) mg/dL Total Bilirubin 0.3 (0.1-1.2) mg/dL Direct Bilirubin < 0.2 (0-0.2) mg/dL Indirect Bilirubin 0.1 mg/dL AST 17 (5-40) units/L ALT 14 (7-56) units/L Alkaline Phosphatase 52 (35-129) units/L Total Creatine Kinase 63 (30-135) units/L Troponin T < 0.010 (0.00-0.029) ng/mL Total Protein 7.2 (6.3-8.2) g/dL Albumin 3.8 L (3.9-5) g/dL Albumin/Globulin Ratio 1.1 % HCG, Quant 68010 H (0-4) mIU/mL Urine Color (Yellow) Urine Turbidity (Clear) Urine pH (5.0-7.0) Ur Specific [place] (1.003-1.030) Urine Protein (Negative) mg/dL Urine Glucose (UA) (Negative) mg/dL Urine Ketones (Negative) mg/dL Urine Blood (Negative) Urine Nitrite (Negative) Ur Reducing Substances Urine Bilirubin (Negative) Urine Ictotest Urine Urobilinogen (<2.0) mg/dL Ur Leukocyte Esterase (Negative) Urine WBC (Auto) (0.0-6.0) /HPF Urine RBC (Auto) (0.0-6.0) /HPF U Epithel Cells (Auto) (0-13.0) /HPF Urine Bacteria (Auto) (Negative) /HPF Urine Mucus /HPF Urine HCG, Qual (Negative) Urine Opiates Screen Urine Methadone Screen Ur Barbiturates Screen Ur Phencyclidine Scrn Ur Amphetamines Screen U Benzodiazepines Scrn Urine Cocaine Screen U Marijuana (THC) Screen Drugs of Abuse Note Ketones (-0.28) mmol/L Blood Type 09/25/16 Range/Units 15:46 WBC (4.5-11.0) K/mm3 RBC (3.65-5.03) M/mm3 Hgb (10.1-14.3) gm/dl Hct (30.3-42.9) % MCV (79-97) fl MCH (28-32) pg MCHC (30-34) % RDW (13.2-15.2) % Plt Count (140-440) K/mm3 Lymph % (Auto) (13.4-35.0) % [place] % (Auto) (0.0-7.3) % Eos % (Auto) (0.0-4.3) % Baso % (Auto) (0.0-1.8) % Lymph # (1.2-5.4) K/mm3 [place] # (0.0-0.8) K/mm3 Eos # (0.0-0.4) K/mm3 Baso # (0.0-0.1) K/mm3 Seg Neutrophils % (40.0-70.0) % Seg Neutrophils # (1.8-7.7) K/mm3 Sodium (137-145) mmol/L Potassium (3.6-5.0) mmol/L Chloride (98-107) mmol/L Carbon Dioxide (22-30) mmol/L Anion Gap mmol/L BUN (7-17) mg/dL Creatinine (0.7-1.2) mg/dL Estimated GFR ml/min BUN/Creatinine Ratio % Glucose (65-100) mg/dL POC Glucose (70-105) Lactic Acid (0.7-2.0) mmol/L Calcium (8.4-10.2) mg/dL Total Bilirubin (0.1-1.2) mg/dL Direct Bilirubin (0-0.2) mg/dL Indirect Bilirubin mg/dL AST (5-40) units/L ALT (7-56) units/L Alkaline Phosphatase (35-129) units/L Total Creatine Kinase (30-135) units/L Troponin T (0.00-0.029) ng/mL Total Protein (6.3-8.2) g/dL Albumin (3.9-5) g/dL Albumin/Globulin Ratio % HCG, Quant (0-4) mIU/mL Urine Color (Yellow) Urine Turbidity (Clear) Urine pH (5.0-7.0) Ur Specific [place] (1.003-1.030) Urine Protein (Negative) mg/dL Urine Glucose (UA) (Negative) mg/dL Urine Ketones (Negative) mg/dL Urine Blood (Negative) Urine Nitrite (Negative) Ur Reducing Substances Urine Bilirubin (Negative) Urine Ictotest Urine Urobilinogen (<2.0) mg/dL Ur Leukocyte Esterase (Negative) Urine WBC (Auto) (0.0-6.0) /HPF Urine RBC (Auto) (0.0-6.0) /HPF U Epithel Cells (Auto) (0-13.0) /HPF Urine Bacteria (Auto) (Negative) /HPF Urine Mucus /HPF Urine HCG, Qual (Negative) Urine Opiates Screen Urine Methadone Screen Ur Barbiturates Screen Ur Phencyclidine Scrn Ur Amphetamines Screen U Benzodiazepines Scrn Urine Cocaine Screen U Marijuana (THC) Screen Drugs of Abuse Note Ketones (-0.28) mmol/L Blood Type - EKG Data -: EKG Interpreted by Me (sinus 65, sinus arrhythmia lae) - EKG Data When compared to previous EKG there are: previous EKG unavailable - Radiology Data Radiology results: report reviewed Transvaginal/pelvic ultrasound: Single live IUP 13 weeks 6 days. There may be a small subchorionic hemorrhage - Medical Decision Making Patient denies vaginal bleeding. Small subchorionic hemorrhage seen ultrasound. Patient is O+ and does not require RhoGAM. Patient is asymptomatic here with negative orthostatics. No signs of anemia. Headache was mild and improved with tylenol and food. NO signs of nucal rigidity. The patient's chest pain or shortness of breath. Patient admits to poor by mouth intake today. She declined IV fluids since orthostatics are normal. Pt reports feeling better. - Differential Diagnosis dehydration, vasovagal, ectopic , PE, sah/ich Critical care attestation.: If time is entered above; I have spent that time in minutes in the direct care of this critically ill patient, excluding procedure time. ED Disposition Clinical Impression: Vasovagal syncope, 13 weeks gestation of , Subchorionic hematoma Disposition: DISCHARGED TO HOME OR SELFCARE Is pt being admited?: No Does the pt Need Aspirin: No Condition: Stable Instructions: Syncope (ED) Additional Instructions: Continue to rest today. Make sure you drink plenty of fluids and eat appropriately. Use caution when standing. Return if symptoms worsen. Ultrasound you are 13 weeks and 6 days. There is small area of blood that could result in vaginal spotting. If vaginal spotting occurs come to the ER if bleeding is greater than 1 pad per hour or significant pain. 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
== END 2016-09-25 18:45 | disposition home or self-care (01) ==
LOC: ED 08:28
DX: O26.891 Other specified pregnancy related conditions, first trimester (principal); R55 Syncope and collapse; O20.8 Other hemorrhage in early pregnancy
CPT/HCPCS: 36415; 76801; 76817; 80048; 80074; 80307; 81001; 81025; 82010; 82140; 82550; 82962; 84484; 84702; 85025; 86850; 86900; 86901; 87086; 93005; 93010